=== PATIENT | female | born 1980 | race Caucasian/White ===

== ENCOUNTER → 2023-09-04 15:05 | Outpatient (BNVA) | payer SELFPAY | PROVIDERS: Family Provider Family Medicine; Visit Provider Nurse Practitioner | DX: S92.325A Nondisplaced fracture of second metatarsal bone, left foot, initial encounter for closed fracture (principal); W22.8XXA Striking against or struck by other objects, initial encounter | CPT/HCPCS: 73630 ==

== ENCOUNTER → 2023-09-25 08:42 | Outpatient (BNVA) | payer OTHER, SELFPAY | PROVIDERS: Family Provider Family Medicine; Visit Provider Podiatrist Foot & Ankle Surgery | DX: S92.322A Displaced fracture of second metatarsal bone, left foot, initial encounter for closed fracture; W20.8XXA Other cause of strike by thrown, projected or falling object, initial encounter | CPT/HCPCS: 73630 ==

== ENCOUNTER 2023-09-25 09:00 | Outpatient (CLI) | payer OTHER, SELFPAY | END 2023-09-25 09:01 | disposition home or self-care (01) | LOC: SPT 09-28 12:11 | PROVIDERS: Family Provider Family Medicine; Visit Provider Podiatrist Foot & Ankle Surgery | DX: Z46.89 Encounter for fitting and adjustment of other specified devices (principal); M79.673 Pain in unspecified foot | CPT/HCPCS: 97760; L4361 ==

== ENCOUNTER → 2023-10-20 15:30 | Outpatient (BNVA) | payer OTHER, BC, MEDICAID, SELFPAY | PROVIDERS: Family Provider Family Medicine; Visit Provider Podiatrist Foot & Ankle Surgery | DX: S92.322A Displaced fracture of second metatarsal bone, left foot, initial encounter for closed fracture (principal); M79.672 Pain in left foot; W20.8XXA Other cause of strike by thrown, projected or falling object, initial encounter | CPT/HCPCS: 73630 ==

== ENCOUNTER 2024-02-08 05:54 | Day surgery (SDC) | payer OTHER, BC, MEDICAID, SELFPAY ==
[2024-02-08] VITALS (7 sets, daily range): BP systolic 107–140; BP diastolic 58–91; PULSE 61–99; RESP 16–18; TEMP 36.4–36.8; O2SAT 94–100; BMI 25.9
--- NOTE | 2024-02-08 06:27 | P.ANESASSM_ITS ---
Pre-Anesthetic Assessment Height/Weight: Height 4 ft 11 in Weight 128 lb 4.51 oz Temp Pulse Resp BP Pulse Ox O2 Del Method 98.2 F 99 16 140/91 100 Room Air 02/08/24 06:13 02/08/24 06:13 02/08/24 06:13 02/08/24 06:13 02/08/24 06:13 02/08/24 06:13 Preop Diagnosis: Left foot hallux valgus Operation Date: 02/08/24 07:00 Proposed Procedures p Bunionectomy José Miguel(Left) - Carter Hayden DPM s Daniel Bunionectomy(Left) - Carter Hayden DPM Was Beta Pradeep taken within 24 hours: N/A Was Clonidine taken within 24 hours: N/A Last intake: Intake Last Liquid Date 02/07/24 Last Liquid Time 23:00 Last Solid Date 02/07/24 Last Solid Time 19:00 Social Tobacco and No alcohol Exam alert, oriented x 3, clear to auscultation bilaterally and regular rate & rhythm Airway Submandibular: within normal limits Cervical ROM: within normal limits Mallampati: Class III Dentition: full Comments: Comments: Denies any loose teeth Anesthetic Plan ASA status: 2 Anesthesia: MAC Other: No prior issues with anesthesia NPO since yesterday Patient is extremely nervous this a.m. Preop BP 140/91, denies any cardiac issues Current smoker METs greater than 4 Plan for MAC anesthetic with local via surgeon Medications/Allergies Home Medications Medication Instructions Recorded Confirmed Last Taken Type Crutches #1 ea 09/04/23 01/20/24 Unknown Rx ibuprofen 800 mg tablet 800 mg PO TID PRN pain #25 tabs 09/04/23 02/08/24 02/06/24 Rx CAM boot left foot #1 ea 09/25/23 01/20/24 Unknown Rx Allergies Allergy/AdvReac Type Severity Reaction Status Date / Time No Known Allergies Allergy Verified 01/20/24 15:53 [facility] Social History Smoking and tobacco/nicotine status: never used tobacco/nicotine Data Anesthesia Cardiac Studies: No Data to Display
[2024-02-08] MEDS: sodium chloride 0.9% 1,000 ML 30 ML IV (06:30)
[2024-02-08] MEDS: acetaminophen 1,000 MG/100 ML PIGGYBACK 400 MG IV (06:31)
[2024-02-08] MEDS: gabapentin 300 mg Capsule PO (06:34)
[2024-02-08 06:37] LABS: OR HCG Qualitative Urine Negative (Negative)
--- NOTE | 2024-02-08 06:43 | W.PM.OPSUD ---
Surgery/Procedure H&P Update DATE OF PROCEDURE: February 08, 2024 DATE H&P PERFORMED: 01/19/23 H&P UPDATE INFORMATION: I have reviewed H&P completed within last 30 days, I have examined patient prior to procedure, No changes to prior documentation and H&P is in [facility] EMR on date indicated PREOP DIAGNOSIS: Left foot hallux valgus PLANNED PROCEDURE: Operation Date: 02/08/24 07:00 Proposed Procedures p Bunionectomy José Miguel(Left) - Carter Hayden DPM s Daniel Bunionectomy(Left) - Carter Hayden DPM
[2024-02-08] MEDS: ceFAZolin 2,000 mg SDV 2000 MG IVP (06:58)
[2024-02-08] MEDS: BUPivacaine 0.5% INJ 30 mL XX ×2 (07:10→07:40)
--- NOTE | 2024-02-08 08:48 | W.PM.BPON ---
Date of procedure: February 08, 2024 Surgeon name: Merly ShorePAjit Head Wrestling Coach(s) name(s): Dean Machado Procedure(s) performed: Left foot José Miguel bunionectomy, Daniel osteotomy Description of findings: Left foot hallux valgus Estimated blood loss: 15 cc Tourniquet time: No tourniquet used Specimen(s) removed: None Post-operative diagnosis: Left hallux valgus
--- NOTE | 2024-02-08 08:49 | P.OP_ITS ---
Operative Report Date of procedure: February 08, 2024 Pre-op diagnosis: Left foot hallux valgus Post-op diagnosis: Same Procedure done: Left foot José Miguel bunionectomy, Daniel osteotomy CPT 34889 Implants: To 4.0 headless screws and one 2.7 headless compression screw from [employer] Surgeon: Carter Hayden DPM Autoclave Operator: Dean Machado Estimated blood loss: 15 cc No tourniquet used Complications: None Procedure: Patient is a 43-year-old female that has a history of left hallux valgus deformity. The patient has had the aforementioned chief complaint for some time. Conservative treatment measures have been attempted and the patient has opted for surgical intervention at this time. A lengthy discussion regarding the procedure, including risks and complications has been had with the patient and is noted in the recent clinic note. Written and verbal consent have been obtained. All patient questions have been answered to the patient?s satisfaction. No written or verbal guarantees have been given or implied. The patient has been NPO since midnight. The history has been reviewed and the history and physical is current. The signed consent was confirmed and placed in the patient chart. Patient imaging has been reviewed and is consistent with the diagnosis. Under mild sedation, the patient was brought into the operating room and placed on the table in the supine position. IV antibiotics were given by the anesthesia team as preoperative surgical prophylaxis. IV sedation was then performed by the anesthesiateam. A pneumatic tourniquet was then placed about the left upper ankle. The operative extremity was then prepped and draped in the usual fashion. The tourniquet was not inflated. After preparation, the following procedure then performed. Attention was directed to the left foot where a 15 blade was used to make a stab incision of the level of the first metatarsal neck. Dissection was carried out the dorsal and plantar aspect of the first metatarsal neck region. A bur was inserted into the incision site and under direct fluoroscopy a transverse osteotomy was made through the first metatarsal neck. The capital fragment was then shifted laterally in the transverse plane before being temporarily fixated with 2 guidewires. Next 2 stab incisions were made at the proximal medial aspect of the first metatarsal. Two 4.0 screws were then driven across the osteotomy site to maintain position of the capital fragment. Good positioning of the screws and capital fragment was noted on C-arm imaging. Next, attention was directed to the proximal phalanx. Stab incision was made medial to the head of the proximal phalanx. The bur was inserted and an Rosa osteotomy was performed. A guidewire was driven from proximal medial to distal lateral across the osteotomy site. A 2.0 headless compression screw was then placed over the wire across the osteotomy site to maintain permanent fixation. Good positioning of hardware was noted. Incision sites were irrigated with copious Tolliver sterile saline before being closed with 4-0 nylon. Incision sites were dressed with Xeroform, 4 x 4 gauze, Kerlix, Jimbo. The patient tolerated the procedure and anesthesia well and without complication. The patient was transported from the operating room to the recovery room with vital signs stable and vascular status intact to all digits of the left foot. The patient was given both written and verbal instructions to remain [ ] to the operative extremity, to keep dressings/splint clean, dry and intact and to take pain medication as directed. The patient will follow-up in the outpatient setting at their scheduled appointment. The patient was discharg ed with my personal number and was instructed to call if any questions or issues should arise. They were discharged home once anesthesia criteria was met.
--- NOTE | 2024-02-08 09:38 | ANE.PACU2 ---
Inpatient post-anesthesia follow up: Airway intact: Yes Vital signs: Temperature 97.6 F Pulse Rate 66 Respiratory Rate 16 Blood Pressure 114/75 Pulse Oximetry 99 Oxygen Delivery Me thod Room Air Oxygen Flow Rate Fraction of Inspir ed Oxygen Hydration adequate: Yes Nausea and vomiting: No Pain level: 1 Mental status: Baseline
--- NOTE | 2024-02-08 15:04 | XR_ITS ---
WS: [id number] XR foot LT 2V [id number] REASON FOR EXAM: PADMA PICS FINDINGS: Osteotomy with screw fixation of the distal first metatarsal. Osteotomy of the midportion of the first proximal phalanx. Surgical appliances are intact and in proper position and alignment. Alignment of the osteotomy sites is appropriate. XR/XR foot LT 2V [id number] IMPRESSION: Osteotomies with screw fixation as above.
== END 2024-02-08 09:38 | disposition home or self-care (01) ==
PROVIDERS: Student in an Organized Health Care Education/Training Program; Visit Provider Podiatrist Foot & Ankle Surgery
PROC: (CPT 28296; principal; 2024-02-08 07:00)
PROC: (CPT 28298; 2024-02-08 07:00)
DX: M20.12 Hallux valgus (acquired), left foot (principal); F17.200 Nicotine dependence, unspecified, uncomplicated
CPT/HCPCS: 28299; 73620; 76000; 81025; C1713 ×2; J0131; J0690; J1885; J2250; J2371; J2704; J3010; J3490; J7030

== ENCOUNTER → 2024-02-22 13:05 | Outpatient (BNVA) | payer OTHER, BC, MEDICAID, SELFPAY | PROVIDERS: Visit Provider Podiatrist Foot & Ankle Surgery | DX: S92.322D Displaced fracture of second metatarsal bone, left foot, subsequent encounter for fracture with routine healing; M21.612 Bunion of left foot; X58.XXXD Exposure to other specified factors, subsequent encounter | CPT/HCPCS: 73630 ==

== ENCOUNTER → 2024-03-08 09:50 | Outpatient (BNVA) | payer OTHER, BC, MEDICAID, SELFPAY | PROVIDERS: Visit Provider Podiatrist Foot & Ankle Surgery | DX: S92.322D Displaced fracture of second metatarsal bone, left foot, subsequent encounter for fracture with routine healing; X58.XXXD Exposure to other specified factors, subsequent encounter | CPT/HCPCS: 73630 ==

== ENCOUNTER → 2024-03-29 10:47 | Outpatient (BNVA) | payer OTHER, BC, MEDICAID, SELFPAY | PROVIDERS: Visit Provider Podiatrist Foot & Ankle Surgery | DX: S92.322A Displaced fracture of second metatarsal bone, left foot, initial encounter for closed fracture (principal); X58.XXXA Exposure to other specified factors, initial encounter; Z98.890 Other specified postprocedural states | CPT/HCPCS: 73630 ==

== ENCOUNTER → 2024-06-15 15:38 | Outpatient (BNVA) | payer OTHER, BC, MEDICAID, SELFPAY | PROVIDERS: Visit Provider Podiatrist Foot & Ankle Surgery | DX: S92.322A Displaced fracture of second metatarsal bone, left foot, initial encounter for closed fracture (principal); X58.XXXA Exposure to other specified factors, initial encounter | CPT/HCPCS: 73630 ==

== ENCOUNTER 2024-07-04 12:32 | Outpatient (CLI) | payer OTHER, BC, MEDICAID, SELFPAY ==
--- NOTE | 2024-07-04 13:00 | MRR_ITS ---
PROCEDURE INFORMATION: Exam: MR Left Lower Extremity Other Than Joint Without Contrast; Foot Exam date and time: 07/04/2024 12:43 PM Age: 43 years old Clinical indication: Left; Prior surgery; Surgery date: 6+ months; Surgery type: Foot pinning; PT states a case of soda was dropped on her foot last August, she had multiple stress fractures and was taken to surgery where three pins were put in her foot in February, she is still having increased pain and swelling; Additional info: Pain in left foot TECHNIQUE: Imaging protocol: Magnetic resonance imaging of the left lower extremity without contrast. Exam focused on the foot. COMPARISON: CR XR foot LT min 3V* [id number] 06/15/2024 3:56 PM FINDINGS: Bones/joints: There are postsurgical changes of the 1st metatarsal bone and proximal phalanx of the 1st digit with stable alignment. The marrow signal appears grossly within normal limits given limitations secondary to artifact from surgical hardware. There is a healing stress fracture of the 2nd metatarsal bone with [id number] callus formation and minimal residual marrow edema and mild periosteal edema along the medial aspect of the 2nd metatarsal bone. LIGAMENTS: Lisfranc ligament: Unremarkable. No evidence of tear. TENDONS: Flexor tendons of foot: Unremarkable. No evidence of tear. Tibialis posterior tendon: Unremarkable as visualized. Peroneal tendons: Unremarkable as visualized. Extensor tendons of foot: Unremarkable. No evidence of tear. Tibialis anterior tendon: Unremarkable as visualized. Soft tissues: There is [id number] soft tissue swelling along the dorsum of the forefoot MR/MR foot LT wo con* [id number] IMPRESSION: 1. Postoperative changes of the 1st metatarsal bone and proximal phalanx of the 1st digit with stable alignment 2. [id number] nonspecific soft tissue swelling along the dorsum of the forefoot 3. Healing stress fracture of the 2nd metatarsal bone with minimal residual marrow edema and mild periosteal edema along the medial aspect of the 2nd metatarsal bone
== END 2024-07-04 12:33 | disposition home or self-care (01) ==
LOC: RAD 12:32
PROVIDERS: Visit Provider Podiatrist Foot & Ankle Surgery
DX: M84.375A Stress fracture, left foot, initial encounter for fracture (principal); Z98.890 Other specified postprocedural states; M79.89 Other specified soft tissue disorders; W20.8XXA Other cause of strike by thrown, projected or falling object, initial encounter; R93.7 Abnormal findings on diagnostic imaging of other parts of musculoskeletal system
CPT/HCPCS: 73718